=== PATIENT | female | born 1955 | race Caucasian/White ===

== ENCOUNTER 2016-10-13 16:44 | Emergency (ER) | payer OTHER ==
[2016-10-13 16:48] VITALS: BP 143/59; PULSE 82; TEMP 97.6; BMI 38.9
--- NOTE | 2016-10-13 17:50 | PDOC ---
History of Present Illness - General Chief Complaint: Pain Stated Complaint: BREAST PAIN Time Seen by Provider: 10/13/16 17:23 History Source: Patient Exam Limitations: No Limitations - History of Present Illness Initial Comments: 10/13/16 17:43 Patient is a 61-year-old female history of hypertension and restless leg, presents for evaluation of left breast burning sensation. Symptoms started on September 23, 1 single episode of nipple discharge after squeezing nipple. Intermittent positional burning pain to left upper back, no pain on inspiration. Pain when bending or arching back. Denies chest pain or shortness of breath. 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 No rash. Past Medical History: Denies. Allergies: No known allergies Medications: see medication list Family History: Non-contributory Social History: Denies smoking, alcohol use, or IVDU Review of Systems GENERAL/CONSTITUTIONAL: No fever or chills. No weakness. No weight change. HEAD, EYES, EARS, NOSE AND THROAT: No change in vision. No ear pain or discharge. No sore throat. CARDIOVASCULAR: No chest pain or shortness of breath. RESPIRATORY: No cough, wheezing, or hemoptysis. GASTROINTESTINAL: No nausea, vomiting, diarrhea or constipation. No rectal bleeding. GENITOURINARY: No dysuria, frequency, or change in urination. MUSCULOSKELETAL: No joint or muscle swelling or pain. No neck pain, intermittent left upper back pain. SKIN AND BREASTS: No rash or easy bruising. Burning sensation to left breast NEUROLOGIC: No headache, vertigo, loss of consciousness, or loss of sensation. HEMATOLOGIC/LYMPHATIC: No anemia, easy bleeding, or history of blood clots. No lymphadenopathy Physical Exam: GENERAL: The patient is awake, alert, and fully oriented, in no acute distress. EYES: Pupils equal, round and reactive to light, extraocular movements intact, sclera anicteric, conjunctiva clear. ENT: Ears normal, nares patent, oropharynx clear without exudates. Moist mucous membranes. No uvula deviation NECK: Normal range of motion, supple without lymphadenopathy, JVD, or masses. LUNGS: Breath sounds equal, clear to auscultation bilaterally. No wheezes, and no crackles. BREAST: No palpable mass or visible lesions, no dimpling, no nipple discharge. HEART: Regular rate and rhythm, normal S1 and S2 without murmur, rub or gallop. ABDOMEN: Soft, nontender, normoactive bowel sounds. No guarding, no rebound. No masses. No bruising or abrasions MUSCULOSKELETAL: Normal range of motion, no edema. No clubbing or cyanosis. No cords, erythema, or tenderness. No CVA Tenderness with fist palpation. SKIN: Warm, Dry, normal turgor, no rashes or lesions noted. 10/13/16 18:58 Past History - Past Medical History Allergies/Adverse Reactions: Allergies Allergy/AdvReac Type Severity Reaction Status Date / Time No Known Drug Allergies Allergy Verified 10/13/16 16:48 seasonal Allergy Uncoded 10/13/16 16:48 Home Medications: Ambulatory Orders Amlodipine Besylate [Norvasc -] 5 mg PO DAILY 12/22/13 Hydrochlorothiazide [Hctz -] 25 mg PO DAILY 12/22/13 Rabeprazole Sodium [Aciphex] 20 mg PO DAILY 12/22/13 Anemia: No Asthma: Yes Cardiac Disorders: No CVA: No CHF: No Dementia: No Diabetes: (BORDERLINE) GI Disorders: Yes (ACID REFLUX) Disorders: No HTN: Yes Hypercholesterolemia: No Liver Disease: No Seizures: No Thyroid Disease: No - Surgical History Abdominal Surgery: No Appendectomy: No Cardiac Surgery: No Cholecystectomy: Yes Lung Surgery: No Neurologic Surgery: No Orthopedic Surgery: No - Psycho/Social/Smoking Cessation Hx Anxiety: No Suicidal Ideation: No Smoking Status: No Smoking History: Never smoked Number of Cigarettes Smoked Daily: 0 Hx Alcohol Use: Yes (SOCIAL) Drug/Substance Use Hx: No Substance Use Type: None Hx Substance Use Treatment: No *Physical Exam - Vital Signs Last Vital Signs Temp Pulse Resp BP Pulse Ox 97.6 F 82 20 143/59 100 10/13/16 16:45 10/13/16 16:45 10/13/16 16:45 10/13/16 16:45 10/13/16 16:45 Medical Decision Making - Medical Decision Making 10/13/16 18:00 A/P : She with burning sensation to left back and left breast when asked patient if she feels chest pain she says "no it more on the surface in the breast". Denies any jaw pain, no arm pain, no chest pain. Breast physical examination is benign Patient with reproducible back pain with movement. Because symptoms are so nonspecific reproducible and no visible cause, will perform EKG, chest x-ray rule out acute pathology Toradol 60 mg. 10/13/16 18:49 wet read, chest xray negative. EKG: Twelve-lead EKG was performed and reviewed by Dr. Bates and myself. There is normal sinus rhythm with a rate of 63. R axis of 4. The intervals are normal. There are no ST or T wave abnormalities. Impression: Normal twelve-lead EKG 10/13/16 18:59 10/13/16 19:01 X-rays negative, EKG is unremarkable patient denies any chest pain there is no rash there is no breast lesion mass no palpable lymph nodes. Patient reports some resolve of intermittent reproducible pain after Toradol most likely musculoskeletal in nature advised patient to follow-up with PMD on Saturday. Motrin for pain Recommend follow-up with breast specialist for repeat mammogram I discussed the physical exam findings, ancillary test results and final diagnoses with the patient. I answered all of the patient's questions. The patient was satisfied with the care received and felt comfortable with the discharge plan and treatment plan. The patient will call to arrange follow-up and will return to the Emergency Department with any new, persistent or worsening symptoms. *DC/Admit/Observation/Transfer Diagnosis at time of Disposition: Breast pain, left - Discharge Dispostion Disposition: HOME Condition at time of disposition: Good Admit: No - Referrals Referrals: Neftaly Obando MD [Primary Care Provider] - Stephen Underwood [Staff Physician] - - Patient Instructions Additional Instructions: If any chest pain shortness of breath difficulty breathing or other concerns return to ER Recommend follow-up with PMD on Saturday for evaluation of breast pain Motrin [id number] as needed for pain
[2016-10-13] MEDS ORDERED: KETOROLAC TROMETHAMINE 60 MG/2 ML VIAL IM ONE (18:02)
[2016-10-13] MEDS ORDERED: KETOROLAC TROMETHAMINE 60 MG/2 ML VIAL ONE (18:08)
--- NOTE | 2016-10-15 11:45 | EKG ---
Test Reason : Blood Pressure : / mmHG Vent. Rate : 063 BPM Atrial Rate : 063 BPM P-R Int : 182 ms QRS Dur : 078 ms QT Int : 424 ms P-R-T Axes : 062 004 002 degrees QTc Int : 433 ms NORMAL SINUS RHYTHM LIKELY NORMAL ECG WHEN COMPARED WITH ECG OF 22-DEC-2013 13:10, NO SIGNIFICANT CHANGE WAS FOUND Confirmed by JUSTIN TOLEDO MD ([id number]) on 10/15/2016 11:45:17 AM Referred By: Confirmed By:JUSTIN TOLEDO MD
== END 2016-10-13 19:03 | disposition home or self-care (01) ==
LOC: JERFT 16:44
DX: N64.4 Mastodynia (principal); I10 Essential (primary) hypertension; K21.9 Gastro-esophageal reflux disease without esophagitis; G25.81 Restless legs syndrome
CPT/HCPCS: 71020-TC; 93005; 93010; 99281-25

== ENCOUNTER 2017-02-03 15:27 | Emergency (ER) | payer OTHER ==
[2017-02-03 15:34] VITALS: BP 155/83; PULSE 68; TEMP 98; BMI 39.1
[2017-02-03] MEDS ORDERED: IBUPROFEN 600 MG TABLET (FP) PO ONE ×2 (16:50→16:51)
--- NOTE | 2017-02-03 17:17 | PDOC ---
History of Present Illness - General Chief Complaint: Injury Stated Complaint: FALL Time Seen by Provider: 02/03/17 16:48 History Source: Patient Exam Limitations: No Limitations - History of Present Illness Initial Comments: 02/03/17 17:06 CHIEF COMPLAINT: Mechanical fall, right anterior knee pain HISTORY OF PRESENT ILLNESS: Patient is a 61-year-old female, history of hypertension and diabetes presents for evaluation status post mechanical fall slipped on water while at work fell onto right knee now with right anterior knee pain. There is no erythema, no edema, no deformity pain to patella. Steady Gait. REVIEW OF SYSTEMS: GENERAL: Afebrile, A&O x3 RESPIRATORY: No cough, wheezing, or hemoptysis. CARDIAC: No CP or SOB MUSCULOSKELETAL: Pain to right anterior knee SKIN : No erythema, no edema, no bruising, no deformity. NEUROLOGICAL: Denies any numbness or tingling. PHYSICAL EXAM: GENERAL: The patient is awake, alert, and fully oriented, in no acute distress. HEAD: Normal with no signs of trauma. RESPIRATORY: Lungs clear bilaterally no rhonchi, rales, or wheezes CARDIAC: S1-S2 audible, no murmur rub or gallop EXTREMITIES: Good range of motion to right knee with associated pain, no fluid appreciated, no bulge sign. No pain to superior or inferior patella. Negative drop test. Negative posterior leg test. No joint laxity noted, no ecchymosis, no deformity, no abrasions ,no edema. +3 popliteal pulse. Negative Homans sign. No calf pain or tenderness, no erythema or edema. MUSCULOSKELETAL: No spinal point tenderness. SKIN: Warm, Dry, normal turgor, no erythema, no edema no bruising. 02/03/17 17:53 Past History - Past Medical History Allergies/Adverse Reactions: Allergies Allergy/AdvReac Type Severity Reaction Status Date / Time No Known Drug Allergies Allergy Verified 02/03/17 15:34 seasonal Allergy Uncoded 02/03/17 15:34 Home Medications: Ambulatory Orders Rabeprazole Sodium [Aciphex] 20 mg PO DAILY 12/22/13 Ibuprofen [Motrin -] 600 mg PO QID #28 tablet 02/03/17 Anemia: No Asthma: Yes Cardiac Disorders: No CVA: No CHF: No Dementia: No Diabetes: (BORDERLINE) GI Disorders: Yes (ACID REFLUX) Disorders: No HTN: Yes Hypercholesterolemia: No Liver Disease: No Seizures: No Thyroid Disease: No - Surgical History Abdominal Surgery: No Appendectomy: No Cardiac Surgery: No Cholecystectomy: Yes Lung Surgery: No Neurologic Surgery: No Orthopedic Surgery: No - Suicide/Smoking/Psychosocial Hx Smoking Status: No Smoking History: Never smoked Number of Cigarettes Smoked Daily: 0 Information on smoking cessation initiated: No Hx Alcohol Use: No Drug/Substance Use Hx: No Substance Use Type: None Hx Substance Use Treatment: No *Physical Exam - Vital Signs Last Vital Signs Temp Pulse Resp BP Pulse Ox 98 F 68 18 155/83 99 02/03/17 15:32 02/03/17 15:32 02/03/17 15:32 02/03/17 15:32 02/03/17 15:32 ED Treatment Course - RADIOLOGY Radiology Studies Ordered: Category Date Time Status KNEE 3 POS-RIGHT [RAD] Stat Radiology 02/03/17 16:50 Ordered - Medications Given in the ED: ED Medications Discontinued Medications Generic Name Dose Route Start Last Admin Trade Name Freq PRN Reason Stop Dose Admin Ibuprofen 600 mg 02/03/17 16:50 02/03/17 16:56 Motrin - PO 02/03/17 16:51 600 mg ONCE ONE Administration Medical Decision Making - Medical Decision Making 02/03/17 17:16 A/P: Patient status post fall while at work slipped on water fell off to right knee. There is no deformity to any however patient with anterior patella pain. We will send patient for x-ray to rule out acute injury or low suspicion. Motrin for pain. 02/03/17 17:53 2 views of the knee were reviewed and unremarkable requested sunrise view 02/03/17 18:28 Wet read xray negative for acute fracture, there is an effusion. Will place patient in knee immobilizer, pain persists follow up with orthopedics. Motrin for pain. I discussed the physical exam findings, ancillary test results and final diagnoses with the patient. I answered all of the patient's questions. The patient was satisfied with the care received and felt comfortable with the discharge plan and treatment plan. The patient will call to arrange follow-up and will return to the Emergency Department with any new, persistent or worsening symptoms. *DC/Admit/Observation/Transfer Diagnosis at time of Disposition: Accidental fall Qualifiers: Encounter type: initial encounter Qualified Code(s): W19.XXXA - Unspecified fall, initial encounter Knee pain Qualifiers: Chronicity: acute Laterality: right Qualified Code(s): M25.561 - Pain in right knee - Discharge Dispostion Disposition: HOME Condition at time of disposition: Good Admit: No - Prescriptions Prescriptions: Ibuprofen [Motrin -] 600 mg PO QID #28 tablet - Referrals Referrals: Neftaly Obando MD [Primary Care Provider] - Constantine Emery MD [Staff Physician] - - Patient Instructions Printed Discharge Instructions: DI for Knee Effusion Additional Instructions: 1. Please return to the emergency department with any redness, swelling, increased pain, or any other concerns. 2. Keep splint on. 3. Please follow up in the office of Dr. Encarnacion within a week if pain persists. 4. No weightbearing 5. Ice and elevate when at rest. 6. Motrin for pain - Post Discharge Activity Forms/Work/School Notes: Back to Work
== END 2017-02-03 18:34 | disposition home or self-care (01) ==
LOC: JERFT 15:27
DX: M25.561 Pain in right knee (principal); W01.0XXA Fall on same level from slipping, tripping and stumbling without subsequent striking against object, initial encounter; Y93.89 Activity, other specified; Y92.118 Other place in children's home and orphanage as the place of occurrence of the external cause; Y99.0 Civilian activity done for income or pay
CPT/HCPCS: 73562-TC-RT; 99281-25

== ENCOUNTER 2017-04-14 15:20 | Emergency (ER) | payer OTHER ==
[2017-04-14 15:30] VITALS: BP 161/78; PULSE 82; TEMP 98.1; BMI 38.3
--- NOTE | 2017-04-14 16:23 | PDOC ---
History of Present Illness - General Chief Complaint: Back Pain Stated Complaint: BACK PAIN Time Seen by Provider: 04/14/17 16:23 History Source: Patient Exam Limitations: No Limitations - History of Present Illness Initial Comments: 04/14/17 16:25 My chief complaint: Lower back pain worse since yesterday radiating down her right leg with tingling sensation History of present illness: Patient is a 62-year-old female with a history of hypertension, asthma, gerd, borderline diabetes, diet controlled hypertension and history of herniated lumbar disc here today complaining of worsening lower back pain since she yesterday radiating down her right leg last night with tingling sensation of distal leg. Patient denies any saddle anesthesia, drop foot, incontinency. Patient is requesting have urinalysis does have a history of having some hematuria in the past however patient denies any dysuria urgency or frequency or any flank pain nausea vomiting or fever. Patient reports that she normally has lower back pain however it was worse since yesterday. She denies doing any heavy lifting or exercise recently. She denies any radiation of pain down right leg today or tingling sensation in the legs. 04/14/17 16:36 04/14/17 16:38 04/14/17 16:39 04/14/17 17:12 04/14/17 17:16 Occurred: reports: yesterday Severity: reports: severe Pain Location: reports: back (lower with radiation down rt. leg ) Method of Injury: Yes: unknown Modifying Factors: improves with: None Loss of Consciousness: no loss of consciousness Associated Symptoms (Fall): other (lower back pain with radiation down rt. leg with tingling sensation) Past History - Past Medical History Allergies/Adverse Reactions: Allergies Allergy/AdvReac Type Severity Reaction Status Date / Time No Known Drug Allergies Allergy Verified 04/14/17 15:30 seasonal Allergy Uncoded 04/14/17 15:30 Home Medications: Ambulatory Orders Tramadol HCl [Ultram -] 50 mg PO Q6H PRN #8 tablet MDD 4 04/14/17 Anemia: No Asthma: Yes Cardiac Disorders: No CVA: No COPD: No CHF: No Dementia: No Diabetes: (BORDERLINE) GI Disorders: Yes (ACID REFLUX) Disorders: No HTN: Yes Hypercholesterolemia: No Liver Disease: No Seizures: No Thyroid Disease: No - Surgical History Abdominal Surgery: No Appendectomy: No Cardiac Surgery: No Cholecystectomy: Yes Lung Surgery: No Neurologic Surgery: No Orthopedic Surgery: No - Suicide/Smoking/Psychosocial Hx Smoking Status: No Smoking History: Never smoked Number of Cigarettes Smoked Daily: 0 Hx Alcohol Use: Yes (SOCIAL) Drug/Substance Use Hx: No Substance Use Type: None Hx Substance Use Treatment: No Review of Systems - Review of Systems Able to Perform ROS?: Yes Constitutional: No: Symptoms Reported HEENTM: No: Symptoms Reported Respiratory: No: Symptoms reported Cardiac (ROS): No: Symptoms Reported ABD/GI: No: Symptoms Reported : Yes: Hematuria (h/o ) Musculoskeletal: Yes: Back Pain (b/l, mid pain pain with burning pain with radiation down right leg with tingling sensation of right lower leg last night ) Integumentary: No: Symptoms Reported Neurological: Yes: Tingling (rt. leg last night ) *Physical Exam - Vital Signs Last Vital Signs Temp Pulse Resp BP Pulse Ox 98.1 F 82 20 161/78 100 04/14/17 15:27 04/14/17 15:27 04/14/17 15:27 04/14/17 15:27 04/14/17 15:27 - Physical Exam General Appearance: Yes: Appropriately Dressed Respiratory/Chest: positive: Lungs Clear, Normal Breath Sounds. negative: Chest Tender, Respiratory Distress Cardiovascular: positive: Regular Rhythm, Regular Rate, S1, S2 Gastrointestinal/Abdominal: positive: Normal Bowel Sounds, Soft. negative: Tender, Organomegaly, Distended, Guarding, Rebound, Tenderness, Hepatomegaly, Spleenomegaly Musculoskeletal: positive: Normal Inspection, Vertebral Tenderness, Other ( lumbar paraspinal muscle b/l ). negative: CVA Tenderness, CVA Tenderness (R), CVA Tenderness (L) Extremity: positive: Normal Capillary Refill, Normal Inspection, Normal Range of Motion Integumentary: positive: Normal Color Neurologic: positive: Alert, Normal Response, Motor Strength 5/5 (b/l legs ), Responsive. negative: Respond to painful stimul, Numbness, Sensory Deficit Deep Tendon Reflexes: Knee (L): 4+, Knee (R): 4+ Medical Decision Making - Medical Decision Making 04/14/17 16:40 Patient is a 62-year-old female with a history of hypertension, asthma, gerd, borderline diabetes, diet controlled hypertension and history of herniated lumbar disc here today complaining of worsening lower back pain since she yesterday radiating down her right leg with tingling sensation of distal leg. Patient denies any saddle anesthesia, drop foot, incontinency. Patient is requesting have urine analysis does have a history of having some hematuria in the past however patient denies any dysuria urgency or frequency or any flank pain nausea vomiting or fever. Patient reports that she normally has lower back pain however it was worse since yesterday. She denies doing any heavy lifting or exercise recently. Lumbar back pain h/o hematuria none noted PLAN: toradol 60 mg IM X-ray lumbar sacral spine degenerative changes anterior spondylosis lower thoraic, loss of eertebrae height L4, L5 per Dr. Cochran. Further imaging may be helpful Urinalysis Urine C&S 04/14/17 17:20 04/14/17 17:41 Laboratory Tests 04/14/17 16:45 Urine Color Jasmin Urine Appearance Cloudy Urine pH 5.0 Ur Specific [place] 1.025 Urine Glucose (UA) Negative Urine Ketones Trace H Urine Blood Negative Urine Nitrite Negative Urine Bilirubin Negative Urine Urobilinogen 2.0 H 04/14/17 18:03 follow up with orthopedist tramadol 50 mg every 6 hrs prn # 8 04/15/17 20:02 *DC/Admit/Observation/Transfer Diagnosis at time of Disposition: Lumbar back pain with radiculopathy affecting right lower extremity - Discharge Dispostion Disposition: HOME Condition at time of disposition: Stable - Prescriptions Prescriptions: Tramadol HCl [Ultram -] 50 mg PO Q6H PRN #8 tablet MDD 4 PRN Reason: Severe Pain - Referrals Referrals: Neftaly Obando MD [Primary Care Provider] - Constantine Emery MD [Staff Physician] - - Patient Instructions Additional Instructions: Follow-up with orthopedist for further evaluation Return to emergency room if symptoms worsen any numbness of groin area or weakness of legs or any incontinency of urine or bowel movement Avoid any strenuous activities or exercise You need to drink more fluids especially water Patient voiced understanding of discharge instructions and all questions were answered - Post Discharge Activity Forms/Work/School Notes: Back to Work
[2017-04-14 17:02] LABS: URINE APPEARANCE CLOUDY; URINE BILIRUBIN NEGATIVE (NEGATIVE); URINE BLOOD NEGATIVE (NEGATIVE); URINE COLOR AMBER; URINE GLUCOSE (UA) NEGATIVE (NEGATIVE); URINE KETONE TRACE (NEGATIVE); URINE NITRITE NEGATIVE (NEGATIVE); URINE PROTEIN NEGATIVE (NEGATIVE)
[2017-04-14] MEDS ORDERED: KETOROLAC TROMETHAMINE 60 MG/2 ML VIAL IM ONE (17:10)
[2017-04-14] MEDS ORDERED: KETOROLAC TROMETHAMINE 60 MG/2 ML VIAL ONE (17:13)
[2017-04-14 21:28] LABS: URINE LEUK ESTERASE TRACE (NEGATIVE)
[2017-04-14 23:06] LABS: URINE MUCUS 2+; URINE RBC 0-3 /hpf (0-3)
== END 2017-04-14 18:17 | disposition home or self-care (01) ==
LOC: JERFT 15:20
PROC: 3E0233Z Introduction of Anti-inflammatory into Muscle, Percutaneous Approach (ICD-10-PCS; principal; 2017-04-14)
DX: M54.16 Radiculopathy, lumbar region (principal)
CPT/HCPCS: 72100-TC; 81003; 81015; 87086; 99281-25

== ENCOUNTER 2017-10-03 16:36 | Emergency (ER) | payer OTHER ==
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
[2017-10-03 16:44] VITALS: BP 148/70; PULSE 78; TEMP 97.7; BMI 36.9
[2017-10-03] MEDS ORDERED: IBUPROFEN 400 MG TABLET (FP) PO ONE ×2 (17:08→17:18)
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
--- NOTE | 2017-10-04 10:49 | EKG ---
Test Reason : Blood Pressure : / mmHG Vent. Rate : 071 BPM Atrial Rate : 071 BPM P-R Int : 154 ms QRS Dur : 082 ms QT Int : 388 ms P-R-T Axes : 035 001 026 degrees QTc Int : 421 ms NORMAL SINUS RHYTHM NORMAL ECG WHEN COMPARED WITH ECG OF 13-OCT-2016 18:39, NO SIGNIFICANT CHANGE WAS FOUND Confirmed by ELVIS BANKS MD ([id number]) on 10/04/2017 10:49:16 AM Referred By: Confirmed By:ELVIS BANKS MD
== END 2017-10-03 17:49 | disposition home or self-care (01) ==
LOC: JERFT 16:36
DX: S20.212A Contusion of left front wall of thorax, initial encounter (principal); Y04.2XXA Assault by strike against or bumped into by another person, initial encounter; Y93.89 Activity, other specified; Y92.118 Other place in children's home and orphanage as the place of occurrence of the external cause; Y99.0 Civilian activity done for income or pay; Y07.9 Unspecified perpetrator of maltreatment and neglect; I10 Essential (primary) hypertension
CPT/HCPCS: 93005; 93010; 99281-25

== ENCOUNTER 2018-03-20 14:50 | Emergency (ER) | payer OTHER ==
[2018-03-20 15:04] VITALS: BP 142/86; PULSE 76; TEMP 98.4; BMI 36.3
--- NOTE | 2018-03-20 15:06 | PDOC ---
Rapid Medical Evaluation Chief Complaint: Pain, Acute Time Seen by Provider: 03/20/18 15:03 Medical Evaluation: Allergies Allergy/AdvReac Type Severity Reaction Status Date / Time No Known Drug Allergies Allergy Verified 03/20/18 15:04 seasonal Allergy Uncoded 03/20/18 15:04 Vital Signs Temp Pulse Resp BP Pulse Ox 98.4 F 76 18 142/86 99 03/20/18 15:02 03/20/18 15:02 03/20/18 15:02 03/20/18 15:02 03/20/18 15:02 03/20/18 15:05 I have performed a brief in-person evaluation of this patient. The patient presents with a chief complaint of: tripped and fell onto Right knee Pertinent physical exam findings: swollen/ painful, able to walk with pain. I have ordered the following: right knee xray The patient will proceed to the ED for further evaluation. Discharge Disposition - Diagnosis Knee pain, acute - Referrals - Patient Instructions - Post Discharge Activity
[2018-03-20] MEDS ORDERED: KETOROLAC TROMETHAMINE 60 MG/2 ML VIAL IM ONE (15:57)
[2018-03-20] MEDS ORDERED: KETOROLAC TROMETHAMINE 60 MG/2 ML VIAL ONE (16:00)
--- NOTE | 2018-03-20 16:05 | PDOC ---
History of Present Illness - General Chief Complaint: Pain, Acute Stated Complaint: INJURY TO KNEE Time Seen by Provider: 03/20/18 15:03 History Source: Patient Exam Limitations: Clinical Condition - History of Present Illness Initial Comments: 03/20/18 16:00 Patient with no significant crepitus medication present with complaint of right knee pain status post slip and fall and right knee on the concrete floor and history while walking to work today. Patient denies hitting her head or loss of consciousness during the fall. Patient reports increased pain with ambulation. Patient denies any other symptoms Timing/Duration: 4-6 hours Past History - Past Medical History Allergies/Adverse Reactions: Allergies Allergy/AdvReac Type Severity Reaction Status Date / Time No Known Drug Allergies Allergy Verified 03/20/18 15:04 seasonal Allergy Uncoded 03/20/18 15:04 Home Medications: Ambulatory Orders Leg Brace [Knee Brace] 1 each MC DAILY #1 each 03/20/18 Naproxen 500 mg PO BID PRN #20 tablet 03/20/18 Anemia: No Asthma: Yes Cardiac Disorders: No CVA: No COPD: No CHF: No Dementia: No Diabetes: (BORDERLINE) GI Disorders: Yes (ACID REFLUX) Disorders: No HTN: Yes Hypercholesterolemia: No Liver Disease: No Seizures: No Thyroid Disease: No - Surgical History Abdominal Surgery: No Appendectomy: No Cardiac Surgery: No Cholecystectomy: Yes Lung Surgery: No Neurologic Surgery: No Orthopedic Surgery: No - Suicide/Smoking/Psychosocial Hx Smoking Status: No Smoking History: Never smoked Number of Cigarettes Smoked Daily: 0 Hx Alcohol Use: Yes (SOCIAL) Drug/Substance Use Hx: No Substance Use Type: None Hx Substance Use Treatment: No Review of Systems - Review of Systems Able to Perform ROS?: Yes Is the patient limited Grenadian proficient: No Constitutional: No: Weakness HEENTM: No: Recent change in vision, Double Vision Respiratory: No: Symptoms reported Cardiac (ROS): No: Symptoms Reported ABD/GI: No: Symptoms Reported Musculoskeletal: Yes: Joint Pain (right knee), Joint Swelling (right knee), Muscle Pain (right knee). No: Muscle Weakness Neurological: No: Dizziness All Other Systems: Reviewed and Negative *Physical Exam - Vital Signs Last Vital Signs Temp Pulse Resp BP Pulse Ox 98.4 F 76 18 142/86 99 03/20/18 15:02 03/20/18 15:02 03/20/18 15:02 03/20/18 15:02 03/20/18 15:02 - Physical Exam Comments: 03/20/18 16:02 GENERAL: Well developed, well nourished. Awake and alert. No acute distress. CARDIOVASCULAR: Regular rate and rhythm. No murmurs, rubs, or gallops. PULMONARY: No evidence of respiratory distress. Lungs clear to auscultation bilaterally. No wheezing, rales or rhonchi. ABDOMINAL: Soft. Non-tender. Non-distended. No rebound or guarding. No organomegaly. Normoactive bowel sounds MUSCULOSKELETAL : Moderate tenderness to anterior patellar and medial lateral collateral ligament of right knee. Mild swelling over the patella of right knee. No joint effusion. Negative anterior-posterior drawer test of right knee. No bony deformities EXTREMITIES: No cyanosis. No clubbing. No edema. No calf tenderness. SKIN: Warm and dry. Normal capillary refill. No rashes. No jaundice. NEUROLOGICAL: Alert, awake, appropriate. No motor deficits in the lower extremities. Gait is normal without ataxia. PSYCHIATRIC: Cooperative. Good eye contact. Appropriate mood and affect. General Appearance: Yes: Nourished, Appropriately Dressed, Mild Distress Medical Decision Making - Medical Decision Making 03/20/18 16:03 Patient with no significant past medical history presented with complaint of right knee pain status post slip and fall this afternoon while walking to work. Exam significant for moderate tenderness right anterior knee with mild swelling to right knee. X-ray shows no fracture dislocation. X-ray shows mild leg swelling. Toradol 60 mg IM given for pain. Right knee wrapped with Harpreet bandage. Crutches provided to help with ambulation. Patient is stable for discharge on NSAIDs with orthopedics follow-up *DC/Admit/Observation/Transfer Diagnosis at time of Disposition: Knee pain, acute Qualifiers: Laterality: right Qualified Code(s): M25.561 - Pain in right knee - Discharge Dispostion Disposition: HOME Condition at time of disposition: Stable Decision to Admit order: No - Prescriptions Prescriptions: Leg Brace [Knee Brace] 1 each MC DAILY #1 each Naproxen 500 mg PO BID PRN #20 tablet PRN Reason: knee pain - Referrals Referrals: Neftaly Obando MD [Primary Care Provider] - Booker Encarnacion MD [Staff Physician] - - Patient Instructions Printed Discharge Instructions: DI for Knee Sprain, DI for Knee Pain Additional Instructions: Your x-ray was negative for fracture or dislocation. Take prescribed Medication as needed for pain. Use prescribed need to use daily until symptoms resolve. Follow up will be referred to orthopedist if symptoms persist for more than 4 days - Post Discharge Activity
== END 2018-03-20 16:10 | disposition home or self-care (01) ==
LOC: JERFT 14:50
PROC: 3E0233Z Introduction of Anti-inflammatory into Muscle, Percutaneous Approach (ICD-10-PCS; principal; 2018-03-20)
DX: M25.561 Pain in right knee (principal); W01.0XXA Fall on same level from slipping, tripping and stumbling without subsequent striking against object, initial encounter; Y93.01 Activity, walking, marching and hiking; Y92.89 Other specified places as the place of occurrence of the external cause; Y99.8 Other external cause status; I10 Essential (primary) hypertension; E11.9 Type 2 diabetes mellitus without complications; K21.9 Gastro-esophageal reflux disease without esophagitis; J45.909 Unspecified asthma, uncomplicated
CPT/HCPCS: 73562-TC-RT-FY; 99281-25

== ENCOUNTER 2020-06-02 17:25 | Emergency (ER) | payer OTHER ==
[2020-06-02 18:01] VITALS: BP 174/77; PULSE 67; TEMP 98.5; BMI 36.5
[2020-06-02] MEDS ORDERED: KETOROLAC TROMETHAMINE 60 MG/2 ML VIAL IM ONE (19:00)
[2020-06-02] MEDS ORDERED: KETOROLAC TROMETHAMINE 30 MG/1 ML VIAL ONE (19:30)
== END 2020-06-02 19:48 | disposition home or self-care (01) ==
LOC: JER 17:25 → JERFT 17:25
PROC: 3E0233Z Introduction of Anti-inflammatory into Muscle, Percutaneous Approach (ICD-10-PCS; principal; 2020-06-02)
DX: M25.531 Pain in right wrist (principal)
CPT/HCPCS: 73110-TC-RT-FY; 73130-TC-RT-FY; 99284-25